=== PATIENT | male | born 1995 | race Caucasian/White ===

== ENCOUNTER 2024-10-06 10:09 | Outpatient (RCR) | payer OTHER, BC, SELFPAY | END 2024-11-17 13:11 | disposition home or self-care (01) | PROVIDERS: PCP Family Medicine; Visit Provider Family Medicine | DX: M54.16 Radiculopathy, lumbar region (principal); M54.50 Low back pain, unspecified; Z51.89 Encounter for other specified aftercare | CPT/HCPCS: 97110; 97140; 97161 ==

== ENCOUNTER 2025-11-08 13:30 | Emergency (ER) | payer BC, SELFPAY ==
[2025-11-08 13:51] VITALS: BP 173/109; PULSE 82; RESP 20; TEMP 37.1; O2SAT 97; BMI 44.8
--- NOTE | 2025-11-08 18:10 | CRLHL7_ITS ---
For Patients: As a result of the Cures Act, medical imaging exams and procedure reports are released immediately into your electronic medical record. You may view this report before your referring provider. If you have questions, please contact your health care provider. INDICATION: Chest pain. TECHNIQUE: Chest 2 views. COMPARISON: None. FINDINGS: No pneumothorax or pleural effusion. Lungs are clear. Cardiac and mediastinal contours are within normal limits. Upper abdomen and osseous structures as imaged show no acute abnormality. Subcentimeter metallic foreign body left anterior chest wall. IMPRESSION: No evidence of acute cardiopulmonary disease. Dictated by Jonatan Duff MD @ 11/08/2025 6:55:44 PM (Electronically Signed)
--- NOTE | 2025-11-08 18:16 | ED.GENADULT ---
HPI - General Adult General Chief complaint: Chest Pain Stated complaint: left chest pain Time Seen by Provider: 11/08/25 17:59 Source: patient Mode of arrival: ambulatory Limitations: no limitations History of Present Illness HPI narrative: 29-year-old male presenting today not feeling well. Patient states that he was out with his friends yesterday had about 5-6 beers throughout the day and then just after midnight he developed left-sided chest pain. He felt lightheaded when this occurred. It only acid few minutes he thinks. He was able to go to sleep within he woke up he felt it again sometime in the middle of the day. He read on [employer] well left-sided chest pain meant and found out that it meant he could be having a heart attack. He then became more anxious about it. Maybeury that the symptoms got stronger and then presented to the ER. He states he does not have a chest pain right now but he ?does not feel right?. He is not short of breath, no nausea or vomiting, no recent illness, no diarrhea, no abdominal pain. No fevers or chills. Patient does have a history of hypertension, stop taking his amlodipine about 1 year ago and did not see his doctor for a follow-up. He felt unwell on the amlodipine, complaining of chest pain when he was on it. He states that the chest pain resolved once the amlodipine stopped. Patient states that every now and he does feel a flutter in his chest. When I ask him to point to where his pain is, patient grabs the left breast area. Related Data Previous Rx's ?Medication ?Instructions ?Recorded albuterol sulfate 90 mcg/actuation 2 puff inhalation Q6H PRN 09/23/24 aerosol inhaler (Ventolin HFA) shortness of breath or wheezing #8.5 grams amlodipine 10 mg tablet 10 mg PO QDAY #90 tabs 11/02/24 Allergies Allergy/AdvReac Type Severity Reaction Status Date / Time No Known Drug Allergies Allergy Verified 11/02/24 08:30 Review of Systems Status of ROS: Reports: 10 or more systems reviewed and unremarkable except as noted in History and below PFSH PFS Social History What is your current living situation?: I presently have a place to live Problems where you live: no known problems In the past 12 months, utilities in danger of being shut off: no In past 12 months, lack of transportation kept you from medical appts, meetings, work, or getting things needed for daily living: no In the past 12 mos, have been you worried that your food would run out before you had money to buy more?: never true In the past 12 mos, the food you bought just didn't last and you didn't have money to buy more?: never true Smoking Status: Never smoker Do you use any of these nicotine containing products: Smokeless Tobacco Second hand tobacco smoke exposure: No How often do you have a drink containing alcohol: monthly or less How many standard drinks containing alcohol do you have on a typical day: 3 or 4 How often do you have six or more drinks on one occasion: Never AUDIT-C Alcohol total score: 2 Non-prescribed substance use: denies use How often does anyone, including family, friends and others, physically hurt you: never How often does anyone, including family, friends and others, insult or talk down to you: never How often does anyone, including family, friends and others, threaten you with harm: never How often does anyone, including family, friends and others, scream or curse at you: never service: No Exam Narrative: Exam Narrative: Obese, well-developed patient in no acute distress. Alert and oriented. Answers questions appropriately. Mood and affect are appropriate. Thoughts are goal oriented and rational. No tangential or magical thinking noted. Patient speaks in full sentences without needing to catch his breath. HEENT: Normocephalic atraumatic. Pupils are equally round reactive to light. Extraocular muscles are intact. Conjunctivae are moist without any icterus noted. Moist mucous membranes. Posterior pharynx is normal. Neck is soft without any lymphadenopathy or thyromegaly. No masses are appreciated. Cardiovascular: Heart is regular rate and rhythm S1 and S2 are present without any murmurs. Lungs: Clear to auscultation bilaterally no wheezes rhonchi or rales are appreciated. Patient takes deep breaths without any discomfort. Abdomen: Soft and nontender nondistended with normal bowel sounds. Extremities: Bilateral lower extremities are without edema. Skin: Well perfused without any obvious rashes. Const: Vital Signs, click to edit/add: Vital Signs - 24 hr 11/08/25 13:51 11/08/25 18:37 Temperature 98.7 F Pulse Rate [Pulse Oximeter] 82 Respiratory Rate 20 Blood Pressure [Ri ght Upper Arm] 173/109 H Pulse Oximetry 97 97 Oxygen Delivery Me thod Room Air Course Course ED Course: Differential diagnoses include musculoskeletal pain, GERD, pancreatitis. Less likely acute coronary syndrome, PE, pneumonia, pericarditis, myocarditis. EKG, read by me, shows normal sinus rhythm with a pulse of 74. Normal MO, QRS and QTC intervals. Chest x-ray, read by me, does not show any acute pathology. Blood work was entirely normal except for a slightly elevated white cell count and a minimally elevated D-dimer at 0.53. Discussed these results with the patient and my suspicion of her a blood clot are very low given the patient does not have any tachycardia, shortness of breath, or hypoxia. At this time I do not recommend a chest CT, however using shared decision making, he like to proceed with a chest CT. Chest CT was unremarkable. Vital Signs Vital signs: Initial Vital Signs Temperature 98.7 F 11/08/25 13:51 Temperature Source Temporal Artery Scan 11/08/25 13:51 Pulse Rate 82 11/08/25 13:51 Respiratory Rate 20 11/08/25 13:51 Blood Pressure 173/109 H 11/08/25 13:51 Blood Pressure Mean 130 H 11/08/25 13:51 Blood Pressure Position Sitting 11/08/25 13:51 Pulse Oximetry 97 11/08/25 13:51 Oxygen Delivery Method Room Air 11/08/25 13:51 Vital Signs Temperature 98.7 F 11/08/25 13:51 Pulse Rate 82 11/08/25 13:51 Respiratory Rate 20 11/08/25 13:51 Blood Pressure 173/109 H 11/08/25 13:51 Pulse Oximetry 97 11/08/25 13:51 Oxygen Delivery Method Room Air 11/08/25 13:51 Temperature 98.7 F 11/08/25 13:51 Pulse Rate 82 11/08/25 13:51 Respiratory Rate 20 11/08/25 13:51 Blood Pressure 173/109 H 11/08/25 13:51 Pulse Oximetry 97 11/08/25 18:37 Oxygen Delivery Method Room Air 11/08/25 13:51 Medical Decision Making MDM Narrative Medical decision making narrative: 29-year-old male with atypical chest pain. Pain located over the lateral left chest, generally not consistent with acute coronary syndrome. Recommend he follow-up with primary care provider to discuss blood pressure control. Patient has an appointment already set up with his primary care provider tomorrow. Lab Data Labs: Lab Results 11/08/25 11/08/25 Range/Units 18:20 18:30 WBC 12.45 H (4.50-11.00) K/uL RBC 5.27 (4.30-5.90) m/uL Hgb 15.4 (13.5-17.5) gm/dL Hct 45.8 (37.0-53.0) % MCV 87 (80-100) fL MCH 29 (26-34) pg MCHC 34 (32-36) gm/dL RDW Coeff of Opal 12.6 (11.5-15.5) % Plt Count 267 (140-440) K/uL Neut % (Auto) 70.5 (42.0-72.0) % Lymph % (Auto) 21.7 (20-44) % [place] % (Auto) 6.6 (0.0-11.0) % Eos % (Auto) 0.7 (0.0-7.0) % Baso % (Auto) 0.4 (0.0-3.0) % Neut # (Auto) 8.80 H (1.7-7.0) K/uL Lymph # (Auto) 2.70 (0.90-2.90) K/uL [place] # (Auto) 0.80 (0.00-0.90) K/UL Eos # (Auto) 0.10 (0.00-0.50) K/uL Baso # (Auto) 0.00 (0.00-0.30) K/uL Abs Immat Gran (auto) 0.00 (0.00-0.30) K/uL Imm/Tot Granulo (auto) 0.1 % D-Dimer Quant (PE/DVT) 0.53 H (0.00-0.50) ug/ml Sodium 138 (135-149) mmol/L Potassium 4.0 (3.6-5.1) mmol/L Chloride 97 (96-114) mmol/L Carbon Dioxide 26 (20-32) mmol/L Anion Gap 15 (7-15) mEq/L BUN 10 (5-24) mg/dL Creatinine 0.8 (0.5-1.5) mg/dL Estimated Creat Clear 148.19 Estimated GFR 122 ml/min Glucose 99 (60-115) mg/dL Lactate 1.4 (0.5-1.9) mmol/L Calcium 9.1 (8.4-10.6) mg/dL Total Bilirubin 1.1 (0.1-1.5) mg/dL Direct Bilirubin 0.3 (0.0-0.5) mg/dL AST 27 (12-35) U/L ALT 37 (4-50) U/L Alkaline Phosphatase 72 (40-150) U/L POC Troponin I High Sensi 3.3 (2.9-28.0) pg/mL C-Reactive Protein < 0.5 L (0.5-1.0) mg/dL Total Protein 7.6 (6.0-8.3) g/dL Albumin 4.7 (3.3-5.0) g/dL Lipase 76 (23-300) U/L SARS-CoV-2 (PCR) Negative SARS-CoV-2 (Negative) Influenza Type A (PCR) Negative PCR FLU A (Negative) Influenza Type B (PCR) Negative PCR FLU B (Negative) Imaging Data Chest x-ray: Attestation: I have reviewed the pertinent imaging results. Radiologist's impression: Chest pain. TECHNIQUE: Chest 2 views. COMPARISON: None. FINDINGS: No pneumothorax or pleural effusion. Lungs are clear. Cardiac and mediastinal contours are within normal limits. Upper abdomen and osseous structures as imaged show no acute abnormality. Subcentimeter metallic foreign body left anterior chest wall. IMPRESSION: No evidence of acute cardiopulmonary disease. CT scan - chest: Attestation: I have reviewed the pertinent imaging results. Radiologist's impression: TECHNIQUE: CT chest PE was acquired with 95 cc Isovue 370 IV contrast. Coronal and MIP reconstructions were performed. COMPARISON: None. FINDINGS: Heart and vasculature: Contrast opacification of the pulmonary arterial tree is adequate. No sign of pulmonary embolism. Heart size is normal. Thoracic aorta and pulmonary artery are normal in caliber. Lungs and pleura: No suspicious nodules or infiltrates. No pleural effusions, pleural thickening, or pneumothorax. Lymph nodes/mediastinum: No mediastinal, hilar, or axillary adenopathy. Chest wall: A 7 x 3 cm lipoma is in the right anterolateral chest wall seen on series 4, image 212. Upper abdomen: No acute or significant findings. Bones: Unremarkable for age. IMPRESSION: Unremarkable CT of the chest. No pulmonary embolism and the lungs are clear. No specific findings to explain chest pain. ECG Data Attestation: I personally reviewed and interpreted this ECG as follows: Discharge Plan Discharge Clinical Impression: Atypical chest pain, HTN (hypertension) Patient Disposition: Home, Self-Care Condition: Stable Additional Instructions: Follow-up with your primary care provider as scheduled tomorrow. Prescriptions: No Action albuterol sulfate [Ventolin HFA] 90 mcg/actuation HFA aerosol inhaler 2 puff inhalation Q6H PRN (Reason: shortness of breath or wheezing) Qty: 8.5 1RF amlodipine 10 mg tablet 10 mg PO QDAY Qty: 90 3RF Follow Up/Referrals: Gadiel Anand MD [Primary Care Provider, Family Practice] Stand Alone Forms: [employer] Info Instructions
[2025-11-08 18:36] LABS: Lactate* 1.4 mmol/L (0.5-1.9)
[2025-11-08 18:37] VITALS: O2SAT 97
--- OUTSIDE RECORDS SUMMARY | 2025-11-08 18:37 | XMS_ITS | Clinical Summary ---
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 PCP - General 06/25/18
[2025-11-08 18:51] LABS: Albumin* 4.7 g/dL (3.3-5.0); Chloride* 97 mmol/L (96-114)
[2025-11-08 18:52] LABS: Potassium* 4.0 mmol/L (3.6-5.1); Sodium* 138 mmol/L (135-149)
[2025-11-08 18:54] LABS: Blood Urea Nitrogen* 10 mg/dL (5-24); Creatinine* 0.8 mg/dL (0.5-1.5); Est. Creatinine Clearance* 148.19; Estimated Glomerular Filt Rate 122 ml/min
[2025-11-08 18:55] LABS: Alanine Aminotransferase* 37 U/L (4-50); Alkaline Phosphatase* 72 U/L (40-150); Anion Gap 15 mEq/L (7-15); Aspartate Amino Transferase* 27 U/L (12-35); Bilirubin Direct* 0.3 mg/dL (0.0-0.5); Bilirubin Total* 1.1 mg/dL (0.1-1.5); Calcium* 9.1 mg/dL (8.4-10.6); Carbon Dioxide* 26 mmol/L (20-32); Glucose* 99 mg/dL (60-115); Total Protein* 7.6 g/dL (6.0-8.3)
[2025-11-08 18:58] LABS: D Dimer Quantitative* 0.53 ug/ml (0.00-0.50)
[2025-11-08 19:08] LABS: Hematocrit* 45.8 % (37.0-53.0); Hemoglobin* 15.4 gm/dL (13.5-17.5); Immature Granulocytes Pct Auto 0.1 %; Lymphocytes Absolute Auto 2.70 K/uL (0.90-2.90); Mean Corpuscular HGB Conc 34 gm/dL (32-36); Mean Corpuscular Hemoglobin 29 pg (26-34); Mean Corpuscular Volume 87 fL (80-100); RDW Coefficient of Variation % 12.6 % (11.5-15.5); Red Blood Count* 5.27 m/uL (4.30-5.90); White Blood Count* 12.45 K/uL (4.50-11.00)
[2025-11-08 19:11] LABS: Immature Granulocytes Abs Auto 0.00 K/uL (0.00-0.30)
[2025-11-08 19:12] LABS: Slide Review Reflex No
[2025-11-08 19:19] LABS: PCR FLU A Negative PCR FLU A (Negative); PCR FLU B Negative PCR FLU B (Negative); SARS PCR* Negative SARS-CoV-2 (Negative)
--- NOTE | 2025-11-08 19:30 | CRLHL7_ITS ---
For Patients: As a result of the Century Cures Act, medical imaging exams and procedure reports are released immediately into your electronic medical record. You may view this report before your referring provider. If you have questions, please contact your health care provider. INDICATION: Chest pain. TECHNIQUE: CT chest PE was acquired with 95 cc Isovue 370 IV contrast. Coronal and MIP reconstructions were performed. COMPARISON: None. FINDINGS: Heart and vasculature: Contrast opacification of the pulmonary arterial tree is adequate. No sign of pulmonary embolism. Heart size is normal. Thoracic aorta and pulmonary artery are normal in caliber. Lungs and pleura: No suspicious nodules or infiltrates. No pleural effusions, pleural thickening, or pneumothorax. Lymph nodes/mediastinum: No mediastinal, hilar, or axillary adenopathy. Chest wall: A 7 x 3 cm lipoma is in the right anterolateral chest wall seen on series 4, image 212. Upper abdomen: No acute or significant findings. Bones: Unremarkable for age. IMPRESSION: Unremarkable CT of the chest. No pulmonary embolism and the lungs are clear. No specific findings to explain chest pain. Please note that all CT scans at this facility use dose modulation, iterative reconstruction, and/or weight-based dosing when appropriate to reduce radiation dose to as low as reasonably achievable. Dictated by Juan C Seymour MD @ 11/08/2025 8:04:46 PM (Electronically Signed)
== END 2025-11-08 20:48 | disposition home or self-care (01) ==
PROVIDERS: Emergency Provider Family Medicine; PCP Family Medicine
DX: R07.9 Chest pain, unspecified (principal); I10 Essential (primary) hypertension
CPT/HCPCS: 36415; 71046; 71275; 80048; 80076; 83605; 83690; 84484; 85025; 85379; 86140; 87636; 93005; 94761; 99284; 99285; Q9967